=== PATIENT | female | born 1975 | race African-American/Black ===

== ENCOUNTER 2018-04-03 | Inpatient (IN) | payer OTHER ==
--- NOTE | ~2018-04-03 | EKG ---
[place], [place] ELECTROCARDIOGRAM REPORT NAME: KIRSTIN CROWELL UNIT #: [id number] ROOM: [place] [address] DOCTOR: ROSA DRAFT REPORT BIRTHDATE: [birth year] [facility] Test Date: 2018-04-03 Test Time: 15:42:25 Pat Name: KIRSTIN CROWELL Department: Room: [place] [address] Gender: F Nut Sifter: NICOLAS : 1975 Requested By: KEISHA MCCAIN Order Number: [id number] Reading MD: Hallie Amin MD Measurements Intervals [place] Rate: 84 P: 43 ND: 130 QRS: -8 QRSD: 89 T: 15 QT: 379 QTc: 449 Interpretive Statements Sinus rhythm Baseline wander in lead(s) V2 Electronically Signed On 04-04-2018 10:48:58 PST by Hallie Amin MD CM:EKGRPT:ELECTROCARDIOGRAM REPORT [id number] KEISHA LLAMAS DRAFT REPORT KEISHA MCCAIN DO
--- NOTE | ~2018-04-03 | CON ---
[place], [place] REPORT OF CONSULTATION NAME: KIRSTIN CROWELL UNIT #: [id number] ROOM: [place] [address] DOCTOR: CAMILLE COLE CNP BIRTHDATE: [birth year] DOS: 04/06/2018 PSYCHIATRIC CONSULTATION CHIEF COMPLAINT: "I thought Jinns are talking about me. HISTORY OF PRESENT ILLNESS: This is a 42-year-old black female who presented with tremors, visual hallucinations and diaphoresis secondary to withdrawal from benzodiazepines and opiates. The patient also reports history of alcohol dependence. She reported that her last drink was 03/30/2018. She last used heroin IV on 03/30/2018 as well as oxycodone on 03/30/2018. She also reported snorting Xanax on 03/30/2018. She reports being at [facility] for treatment of her substance use disorders; however, today she reported left flank pain and shortness of breath. She was subsequently taken from [facility] to the hospital where she was found to have abnormal labs. The patient was then transported to [facility] for management of her substance withdrawal. While on the ICU unit, the patient told staff that she was going to commit suicide by hanging herself with the IV tubing. She has been experiencing some paranoia and believes that everyone is talking about her. Staff reports that she is no longer experiencing withdrawal symptoms. However, she continues to yell out inappropriately. She continues to make suicidal comments. MENTAL STATUS: She is alert and oriented to person, place and time. There is no overt dinora or hypomania noted. She was pleasant and cooperative with me. Positive paranoia noted. No delusions noted. No auditory hallucinations noted; however, the patient is reporting visual hallucinations. The patient becomes tearful at times. She reports that she is anxious and that she needs medication to help her sleep. The patient's insight and judgment are poor. Her thought process is circumstantial. Her thought content, paranoid. DIAGNOSES: Schizophrenia, bipolar, major depressive disorder and suicidal ideation. Substance use disorder. PLAN: After meeting with the patient, plan will be to transport her to generations dual diagnosis unit in [place], [place] where they will be able to treat her addiction as well as her behavioral health issues. We will consult Oksana Romero to set up the transfer once the patient is considered medically stable. Should you require any further intervention, please feel free to reconsult me at any time. [place], [place] REPORT OF CONSULTATION NAME: KIRSTIN CROWELL UNIT #: [id number] ROOM: [place] [address] DOCTOR: CAMILLE COLE CNP BIRTHDATE: [birth year] Camille Cole CNP CM:CONSTR:REPORT OF CONSULTATION 1224 04/06/18 1846 interface
[2018-04-03 14:23] VITALS: BP 136/94
[2018-04-03 14:55] LABS: BILIRUBIN NEGATIVE (NEGATIVE); BLOOD NEGATIVE (NEGATIVE); CLARITY SL CLOUDY (CLEAR); COLOR YELLOW (YELLOW); GLUCOSE NEGATIVE (NEGATIVE); KETONE NEGATIVE (NEGATIVE); LEUKO ESTERASE 3+ (NEGATIVE); NITRITE NEGATIVE (NEGATIVE); PH 6.5 (5.0-9.0); UROBILINOGEN 0.2 E.U./dl (0.2-1.0)
[2018-04-03 15:04] LABS: URINE AMPHETAMINES < 1000 (1000ng/ml); URINE BARBITURATES > 200 (200ng/ml); URINE BENZODIAZEPINES > 200 (200ng/ml); URINE CANNABINOIDS (THC) < 50 (50ng/ml); URINE COCAINE < 300 (300ng/ml); URINE METHADONE < 300 (300ng/ml); URINE OPIATES < 300 (300ng/ml)
[2018-04-03 15:05] LABS: BACTERIA 2+; EPITHELIAL CELLS TNTC; WBC TNTC wbc/hpf (0-5)
[2018-04-03 15:14] LABS: URINE PHENCYCLIDINE < 25 (25ng/ml)
[2018-04-03 16:20] LABS: BASO % 0.4 % (0.0-1.0); EOS # 0.2 10*3/uL (0.0-0.4); EOS % 3.7 % (1.0-4.0); HEMATOCRIT 29.3 % (37.0-47.0); HEMOGLOBIN 8.9 g/dl (12.0-16.0); LYMPH # 1.8 10*3/uL (1.3-4.4); LYMPH % 33.6 % (27.0-41.0); MEAN CELL VOLUME 97.3 fl (81.0-99.0); MEAN CORPUSCULAR HGB 29.6 pg (27.0-31.0); MEAN CORPUSCULAR HGB CONC 30.4 g/dl (33.0-37.0); MEAN PLATELET VOLUME 9.6 fl (9.6-12.3); MONO # 0.5 10*3/uL (0.1-1.0); MONO % 8.9 % (3.0-9.0); NEUT # 2.9 10*3/uL (2.3-7.9); PLATELET COUNT AUTOMATED 237 10*3/uL (130-400); RED BLOOD COUNT 3.01 10*6/uL (4.10-5.10); RED CELL DISTRI WIDTH 15.3 % (0-14.5); WHITE BLOOD COUNT 5.4 10*3/uL (4.8-10.8)
[2018-04-03 16:28] LABS: ACT PARTIAL THROMBO TIME 23.4 SECONDS (20.8-31.5)
[2018-04-03 16:38] LABS: ALBUMIN 3.1 gm/dl (3.1-4.5); ALKALINE PHOSPHATASE 98 U/L (45-117); BUN 62 mg/dl (7-24); CHLORIDE 110 mmol/L (98-107); CREATININE 2.04 mg/dL (0.55-1.02); LIPASE 206 U/L (73-393); POTASSIUM 4.7 mmol/L (3.5-5.1); SGOT/AST 24 IU/L (3-35); SGPT/ALT 30 U/L (12-78); SODIUM 143 mmol/L (136-145); TOTAL PROTEIN 7.8 gm/dL (6.4-8.2)
[2018-04-03 16:40] LABS: ETHYL ALCOHOL < 3.0 mg/dl (<3); TROPONIN I < 0.015 ng/ml (<0.045)
--- NOTE | 2018-04-03 16:50 | NUR ---
UNABLE TO OBTAIN IV ACCESS DR MCCAIN NOTIFIED FOR LINE PLACEMETN
[2018-04-03 18:20] VITALS: BP 139/89
--- NOTE | 2018-04-03 18:20 | NUR ---
42 year old FEMALE admitted to room # 421 for stabilization. Reports an addiction to BENZODIAZEPINES,ALCOHOL, AND OPIATES last used 96 hours prior to admission. Compliant with admission procedure. Patient denies any anxiety, but is unable to sit still, taps toes to floor continuously, looks about room, unable to focus eyes on nurse during interview. See assessment forms for additional information about patient status.
[2018-04-03] MEDS ORDERED: PAXIL20 M1 PO (19:00)
--- NOTE | 2018-04-03 19:58 | NUR ---
MEDICATED WITH PRN ROBAXIN AND REQUIP FOR MUSCLE ACHES AND PAINS. PATIENT VERY DROWSY. FALLS ASLEEP IN THE MIDDLE OF SPEAKING AND DRINKING TO SWALLOW PILLS. DENIES TAKING ANYTHING NOT GIVEN TO HER BY AN RN. BED IN LOWEST POSITION, CALL LIGHT IN REACH
[2018-04-03 20:00] VITALS: BP 138/86
--- NOTE | 2018-04-03 20:08 | NUR ---
ATTEMPTED TO CALL RESIDENT REGARDING PATIENT. NO ANSWER
--- NOTE | 2018-04-03 20:11 | NUR ---
DR COLLAZO NOTIFIED OF PATIENT FALLING ASLEEP WHILE TALKING. STATES HE CANNOT SEE HER RIGHT NOW BUT TO TRANSFER TO THE ICU. PATIENT'S SPEECH GARBLED AT THIS TIME. CONTINUES TO DENY TAKING ANYTHING NOT GIVEN TO HER BY THIS RN.
[2018-04-03 20:20] VITALS: BP 119/79
--- NOTE | 2018-04-03 20:28 | NUR ---
2020 RECEIVED IN ICU #10 VIA BED WITH BELONGINGS. ALERT. SPEECH SL SLURRED. ORIENTED TO SURROUNDINGS AND CALL LIGHT. [address] COLLAZO HERE TO SEE PT. PT STATES THAT SHE IS SEEING "DEVILS"ON HER PHONE. IV FLUIDS INCREASED TO 100CC/HR ORDERED. WILL CONT TO MONITOR.
--- NOTE | 2018-04-03 20:29 | NUR ---
PATIENT TRANSFERRED TO THE ICU. REPORT GIVEN TO TEAGAN OBRIEN. DR COLLAZO AT BEDSIDE.
--- NOTE | 2018-04-03 21:05 | NUR ---
PT RESTING IN BED EATING ICE CREAM AND CAKE. KEEPS DRIFTING OFF TO SLEEP.
--- NOTE | 2018-04-03 22:18 | NUR ---
2210 AWAKE. C/O ANXIETY. VISTARIL GIVEN FOR THIS. REQUESTING SOMETHING FOR PAIN. INFORMED THAT IS IS TOO EARLY. RESTING IN BED WATCHING TV. WILL MONITOR.
[2018-04-04] VITALS: BP 125/82
--- NOTE | 2018-04-04 00:43 | NUR ---
0000 ROUTINE LIBRIUM GIVEN ORDERED. 0040 EARLIER MEDS EFFECTIVE. RESTING IN BED WITH EYES CLOSED. APPEARS TO BE SLEEPING.
--- NOTE | 2018-04-04 02:23 | NUR ---
0200 ROUTINE SUBUTEX GIVEN. NO DISTRESS NOTED.
[2018-04-04 04:00] VITALS: BP 116/85
[2018-04-04 05:13] LABS: BASO % 0.5 % (0.0-1.0); EOS # 0.2 10*3/uL (0.0-0.4); EOS % 5.5 % (1.0-4.0); HEMATOCRIT 26.2 % (37.0-47.0); HEMOGLOBIN 8.1 g/dl (12.0-16.0); LYMPH # 1.9 10*3/uL (1.3-4.4); LYMPH % 46.2 % (27.0-41.0); MEAN CELL VOLUME 98.1 fl (81.0-99.0); MEAN CORPUSCULAR HGB 30.3 pg (27.0-31.0); MEAN CORPUSCULAR HGB CONC 30.9 g/dl (33.0-37.0); MONO # 0.6 10*3/uL (0.1-1.0); MONO % 13.6 % (3.0-9.0); NEUT # 1.4 10*3/uL (2.3-7.9); PLATELET COUNT AUTOMATED 211 10*3/uL (130-400); RED BLOOD COUNT 2.67 10*6/uL (4.10-5.10); RED CELL DISTRI WIDTH 15.5 % (0-14.5)
[2018-04-04 05:39] LABS: ALBUMIN 2.8 gm/dl (3.1-4.5); CREATININE 1.95 mg/dL (0.55-1.02); POTASSIUM 4.7 mmol/L (3.5-5.1); TOTAL PROTEIN 7.1 gm/dL (6.4-8.2)
--- NOTE | 2018-04-04 06:12 | NUR ---
0530 AWAKENED FOR ROUTINE LIBRIUM, REMAINS ALERT WHEN AWAKENED. IV FLUIDS CONT. RIJ MLC INTACT. NO DISTRESS NOTED. CONDITION GUARDED.
[2018-04-04 08:00] VITALS: BP 130/85
--- NOTE | 2018-04-04 08:26 | NUR ---
PR STAFF SPOKE WITH [facility] IN [place] AND SPOKE WITH THE RECREATION ADVISER, PJ WHO STATED THAT THE PATIENT WILL BE ABLE TO GO BACK AND FINISH HER STAY WITH THEM AFTER SHE FINISHED HER TAPER HERE. [facility] [phone]. FUNMI CLARK B.A. COLLECTIONS CLERK
--- NOTE | 2018-04-04 10:45 | NUR ---
MEDICATED WITH ROBAXIN ORDERED FOR COMPLAINTS OF FATIGUE AND MUSCLE PAIN
[2018-04-04 12:00] VITALS: BP 128/76
--- NOTE | 2018-04-04 14:49 | NUR ---
MEDICATED WITH MAALOX, BENTYL, AND VISTARIL FOR COMPLAINTS OF STOMACH UPSET, RIGHT FLANK PAIN, AND ANXIETY.
--- NOTE | 2018-04-04 15:23 | NUR ---
NV STAFF SPOKE WITH [facility] AND THEY ARE STATED THAT SHE DOES NOT MEET THEIR CRITIERIA. NV STAFF SENT PATIENT'S ASSESSMENT TO [facility]. THEY MAY HAVE A POSSIBLE OPENING FOR SATURDAY THE . NV STAFF IS WAITING TO SEE IF PATIENT IS APPROVED OR NOT. NV STAFF WILL FOLLOW UP WITH PATIENT. NV STAFF ALSO CALLED NUMEROUS FACILITIES IN THE AREA, HOWEVER NO BEDS ARE AVAILABLE AT THIS TIME. FUNMI CLARK B.A. HEAD ESTHETICIAN
[2018-04-04 16:00] VITALS: BP 123/68
--- NOTE | 2018-04-04 16:05 | NUR ---
NV STAFF LEFT MESSAGE WITH [facility] IN [place] TO CHECK ON PATIENT'S STATUS. NV STAFF WILL SET UP TRANSPORTATION THROUGH PATIENT'S INSURANCE UPON DISCHARGE ON SATURDAY. FUNMI CLARK B.A. ASSOCIATE RESEARCH SCIENTIST
--- NOTE | 2018-04-04 18:10 | NUR ---
MEDICATED WITH ATIVAN 2MG IV FOR COMPLAINTS OF ANXIETY, RESTLESSNESS. REFUSES TO TAKE ZOFRAN BECAUSE SHE STATES " ZOFRAN MAKES MY TONGUE ITCHY."
--- NOTE | 2018-04-04 18:54 | NUR ---
TALKING TO STAFF, HEARING STAFF TALKING. INTERJECTING IN STAFF'S CONVERSATION. UNHOOKING HEART MONITOR. ATTEMPTING TO GET OUT OF BED. DR. MCCAIN NOTIFIED.
[2018-04-04 20:00] VITALS: BP 143/98
--- NOTE | 2018-04-04 20:29 | NUR ---
1929 DR. COLLAZO HERE TO SE PT. UPDATED ON PT CONDITION. 1999 UP TO BSC TO VOID. MORE ALERT AND COOPERATIVE AT PRESENT. STILL CONFUSED AT TIMES, BUT RE-ORIENTS. 2029 RESTING IN BED WITH EYES CLOSED. APPEARS TO BE SLEEPING. PULSE OX 97% ON RA. IV FLUIDS CONT. RIJ MLC INTACT. NO DISTRESS NOTED AT PRESENT. MONITOR NSR IN THE '
--- NOTE | 2018-04-04 21:21 | NUR ---
ROUTINE LIBRIUM GIVEN PER ORDER. TRAZADONE GIVEN FOR SLEEP. RESTING IN BED EATING ICE CREAM. WILL MONITOR.
--- NOTE | 2018-04-04 22:14 | NUR ---
EARLIER MEDS EFFECTIVE. RESTING IN BED WITH EYES CLOSED. APPEARS TO BE SLEEPING.
[2018-04-05] VITALS (7 sets, daily range): BP systolic 114–145; BP diastolic 74–88
--- NOTE | 2018-04-05 00:23 | NUR ---
REMAINS SLEEPING WITHOUT DISTRESS.
--- NOTE | 2018-04-05 02:41 | NUR ---
0220 AWAKE. HAD A BOXED LUNCH PER REQUEST. REQUESTING IV ATIVAN. INFORMED THAT SHE IS NOT TO RECEIVE ANY MORE OF THIS PER THE PHYSICIAN. GIVEN VISTARIL FOR ANXIETY AND ROBAXIN FOR PAIN. REQUESTING TO SPEAK WITH HER DR. DR. COLLAZO CALLED. 0225 HERE TO TALK WITH PT. 0230 MEDICATED WITH REQUIP FOR RESTLESS LEGS. WILL MONITOR. 0235 NOW REQUESTING SOMETHING FOR NAUSEA. BUT STATES SHE IS ALLERGIC TO ZOFRAN. DR. COLLAZO AWARE. 0245 GIVEN PORTABLE PHONE PER REQUEST TO CALL HER MOTHER.
--- NOTE | 2018-04-05 03:05 | NUR ---
0305 PHENERGAN 12.5MG PO GIVEN PER REQUSET FOR NAUSEA. NO EMESIS NOTED. WILL CONT TO MONITOR.
--- NOTE | 2018-04-05 04:14 | NUR ---
0400 REQUESTING IV ATIVNA AGAIN. STATES " HE TOLD ME TO LET HIM KNOW IF THE MEDICINE DID NOT WORK IN A HALF HOUR AND IT HASN'T". DR. COLLAZO ON FLOOR AND AWARE. NO NEW ORDERS RECEIVED. PT ACTUALLY APPEARS DROWSY BUT STATES THAT I DO NOT KNOW HOW SHE FEELS AND SHE IS "WITHDRAWING". WILL CONT TO MONITOR.
[2018-04-05 05:15] LABS: ALBUMIN 2.8 gm/dl (3.1-4.5); CREATININE 1.9 mg/dL (0.55-1.02); PHOSPHOROUS 3.5 mg/dL (2.5-4.9); POTASSIUM 4.7 mmol/L (3.5-5.1); TOTAL PROTEIN 7.1 gm/dL (6.4-8.2)
[2018-04-05 06:01] LABS: BASO % 0.4 % (0.0-1.0); EOS # 0.2 10*3/uL (0.0-0.4); EOS % 4.9 % (1.0-4.0); HEMATOCRIT 27.3 % (37.0-47.0); HEMOGLOBIN 8.1 g/dl (12.0-16.0); LYMPH # 1.5 10*3/uL (1.3-4.4); LYMPH % 32.8 % (27.0-41.0); MEAN CELL VOLUME 99.6 fl (81.0-99.0); MEAN CORPUSCULAR HGB 29.6 pg (27.0-31.0); MEAN CORPUSCULAR HGB CONC 29.7 g/dl (33.0-37.0); MEAN PLATELET VOLUME 9.7 fl (9.6-12.3); MONO # 0.7 10*3/uL (0.1-1.0); MONO % 14.7 % (3.0-9.0); NEUT # 2.2 10*3/uL (2.3-7.9); PLATELET COUNT AUTOMATED 207 10*3/uL (130-400); RED BLOOD COUNT 2.74 10*6/uL (4.10-5.10); RED CELL DISTRI WIDTH 15.3 % (0-14.5); WHITE BLOOD COUNT 4.7 10*3/uL (4.8-10.8)
--- NOTE | 2018-04-05 06:04 | NUR ---
0500 ROUTINE LIBRIUM GIVEN PER ORDER. STATES " I CAN'T SWALLOW PILLS, I NEVER CAN. I NEED LIQUID". TOLD HER SHE HAS BEEN TAKING PILLS WITHOUT DIFFICULTY FOR ME FOR 2 DAYS. DENIES THIS. 0600 RESTING IN BED WITH EYES CLOSED. APPEARS TO BE SLEEPING. IV FLUIDS CONT. NO DISTRESS NOTED. CONDITION GUARDED.
--- NOTE | 2018-04-05 08:07 | NUR ---
0730 DR. TAPIA IN TO SEE PT. ORDERS RECEIVED. 0800 PT TRANSFERRED TO [facility] AM[facility]UL[facility] WITH PA AND RN. ORIENTED TO NEW ROOM AND CALL LIGHT. GIVEN BREAKFAST. RIJ MLC INTACT. IV FLUIDS CONT. REPORT GIVEN. RESIDENTIAL SUBCONTRACTOR APPLIED. CONDITION GUARDED.
--- NOTE | 2018-04-05 09:00 | NUR ---
DIANA INFORMS THIS RN THAT PT HAD A FALL TRANSFERRING FROM BSC TO BED. NO OPEN AREAS OR BRUISING NOTED UPON ASSESSMENT. DR HENSLEY AND NURSING INDUSTRIAL ORDER CLERK NOTIFIED. NO NEW ORDERS NOTED. WILL CONTINUE TO MONITOR
--- NOTE | 2018-04-05 17:30 | NUR ---
PT STATES THAT SHE IS FEELING SUCIDAL AND WANTS TO HURT SOME ONE. SHE STATES THAT SHE WOULD TRY TO HANG HERSELF. DR FRYE AND NURSING PARTICLE BOARD SUPERVISOR NOTIFIED. NO NEW ORDERS NOTED AT THIS TIME.
--- NOTE | 2018-04-05 18:18 | NUR ---
RECEIVED FROM AFTER VOICING SUICIDAL THOUGHTS THAT SHE WAS GOING TO HANG HERSLEF PER REPORT. [facility] NOTIFIED OF CONSULT, PJ TIWARI AWARE OF CONSULT - WE ARE TO CALL HER WHEN DECLARED MEDICALLY STABLE
--- NOTE | 2018-04-05 18:39 | NUR ---
ROBAXIN & REQUIP GIVEN FOR RESTLESSNESS & ANXIETY - PATIENT THINKS HER SISTER TOOK HER MONEY THAT WAS FOR GETTING BRACELETS WITH HER HUSBANDS ASHES IN THEM FOR HER & HER KIDS. PER THE PATIENT " I WANT TO KILL HER". THE PATIENT SAID SHE TRUSTED HER SISTER AND THAT HER SISTER SAYS SHE CAN'T FIND IT BUT DID NOT USE IT HERSELF. PATIENT IS VERY DEPRESSED ABOUT LOOSING HER AND MISSING HER KIDS BIRTHDAYS. DRESSING TO [facility] CHANGED AFTER LOOSE, NOW SECURE & PATENT WITH IVF INFUSING.
--- NOTE | 2018-04-05 20:25 | NUR ---
NOTIFIED DR. HERNANDES OF PATIENT HAVING A BLOODY EMESIS.
--- NOTE | 2018-04-05 20:30 | NUR ---
NOTIFIED DR. HERNANDES PATIENT WOULD LIKE TO SEE HIM AND TALK TO HIM ABOUT PAIN SHE IS HAVING. HE WILL BE UP TO SEE PATIENT WHEN FINISHED IN ER.
--- NOTE | 2018-04-05 21:00 | NUR ---
DR. HERNANDES IN TO SEE PATIENT, SHE STATED SHE IS HAVING PAIN IN HER VAGINA AND BUTTOCKS AREA FROM FALL IN THE AM. I ASSISTED DR. HERNANDES TO EXAMINE THESE AREAS. NO VISIBLE MARKINGS FOUND. NEW ORDERS RECEIVED FOR XRAY WHEN TIME ALLOW TO TAKE PATIENT DOWN, AND PATIENT STATED "HE DIDNT SPEND ENOUGH TIME WITH ME, HE DOESNT CARE". PATIENT UPSET AND STATED SHE WAS GOING TO [facility] AND HAVE THE DOCTORS BADGE.
--- NOTE | 2018-04-05 22:06 | NUR ---
PATIENT UP ON BEDSIDE COMMODE, PATIENT STATED SHE WAS GOING TO BE AWHILE BUT SHE WAS OK WHILE I GOT MY ADMISSION FROM ER, WHICH WAS MY THIRD ICU PATIENT. ANOTHER FELLOW NURSE CHECK ON PATIENT ALSO WHILE ON THE BEDSIDE, AND SHE WAS OK. I CONTINUE WITH MY ADMISSION, THEN HEARD A THUD AND PATIENT STATED SHE FELL OFF BEDSIDE AND HIT HER MOUTH, IN WHICH A SMALL AMOUNT OF BLOOD WAS ON THE FLOOR. PATIENT STATED "SEE, I TOLD YOU I NEEDED TO SEE THE DOCTOR." DR. HERNANDES WAS NOTIFIED AND SO WAS THE DRILL OPERATOR. PATIENT PLACED BACK IN BED WITH HELP FROM FLOOR, ASSESSED, NO ABRASIONS, NO CUTS FOUND. AWAITING ORDERS.
[2018-04-06] VITALS (7 sets, daily range): BP systolic 118–158; BP diastolic 60–96
--- NOTE | 2018-04-06 03:10 | NUR ---
PATIENT AWOKE, RESTLESS AND ANXIOUS. PATIENT HAD SOAKED THE BED WITH URINE. PATIENT ASSISTED TO BEDSIDE, PATIENT CLEANED UP AND BED CLEANED. RETURNED PATIENT TO BED, ADMINISTERED ATIVAN, BED ALARM PUT ON. WILL CONTINUE TO MONITOR.
[2018-04-06 05:59] LABS: BASO % 0.5 % (0.0-1.0); EOS # 0.3 10*3/uL (0.0-0.4); EOS % 6.7 % (1.0-4.0); HEMATOCRIT 27.2 % (37.0-47.0); HEMOGLOBIN 8.2 g/dl (12.0-16.0); LYMPH # 1.1 10*3/uL (1.3-4.4); LYMPH % 29.3 % (27.0-41.0); MEAN CELL VOLUME 98.9 fl (81.0-99.0); MEAN CORPUSCULAR HGB 29.8 pg (27.0-31.0); MEAN CORPUSCULAR HGB CONC 30.1 g/dl (33.0-37.0); MEAN PLATELET VOLUME 9.7 fl (9.6-12.3); MONO # 0.5 10*3/uL (0.1-1.0); MONO % 13.9 % (3.0-9.0); NEUT # 1.9 10*3/uL (2.3-7.9); NEUT % 49.3 % (47.0-73.0); PLATELET COUNT AUTOMATED 201 10*3/uL (130-400); RED BLOOD COUNT 2.75 10*6/uL (4.10-5.10); WHITE BLOOD COUNT 3.8 10*3/uL (4.8-10.8)
[2018-04-06 06:13] LABS: ALBUMIN 2.7 gm/dl (3.1-4.5); CREATININE 1.62 mg/dL (0.55-1.02); PHOSPHOROUS 3.5 mg/dL (2.5-4.9); POTASSIUM 4.5 mmol/L (3.5-5.1); TOTAL PROTEIN 6.9 gm/dL (6.4-8.2)
--- NOTE | 2018-04-06 08:00 | NUR ---
DR TAPIA ROUNDED - PATIENT WOULD NOT TALK TO HIM. HE ASKED WHAT SHE WOULD DO IF SHE WENT HOME AND SHE WOULD NOT ANSWER - HE TOLD HER THAT SHE MAY BE DISCHARGED - PATIENT DID NOT RESPOND.
--- NOTE | 2018-04-06 08:15 | NUR ---
PATIENT WANTING TO TALK TO A DOCTOR - SHE SAID NO ONE LOOKED AT HER BUTT OR VAGINA AND WHEN TOLD THAT THE NURSE DID YESTERDAY AFTER THE FALL, THEN DR HERNANDES EXAMINED HER LAST NOGHT SHE SAID THAT WASN'T GOOD ENOUGH. REQUESTING IV ATIVAN, TOLD IT ITS NOT TIME YET
--- NOTE | 2018-04-06 08:30 | NUR ---
PATIENT ASKED IF THE DOCTOR IS GOING TO ALLOW HER TO HAVE THE ATIVAN SHOT AND SHE WAS TOLD THAT HE CHANGED IT TO PILL FORM SHE CANNOT GO TO ANY REHAB ON IV AND SHE GOT UPSET.
--- NOTE | 2018-04-06 08:31 | NUR ---
PATIENT WANTING ANY MAN THAT WALKS IN TO COME SEE HER SAYING THAT THE DOCTORS WONT TALK TO HER. PATIENT NOW SAYING SHE TOOK A TISSUE AND WIPED HER BUTT, WHILE IN THE BED, SAYING THAT SHE WAS BLEEDING - SHE SHOWED THE TISSUE WHICH IS ONE SHE HAD BLOWN HER NOSE EARLIER AND SHE SAID IT HAD BLOOD ON IT - NURSE SHOWED IT TO HER AND SHE SAID I SWITCHED IT. PATIENT THEN REQUESTED THE DOCTOR TO COME BECAUSE HER TAIL BONE HURT. RN TOLD HER THAT THE DOCTOR TOLD HER IT WOULD TAKE A WHILE TO STOP AND THAT THERE IS NOTHING THAT CAN BE DONE. SHE SAID THERE IS STUFF FOR PAIN SHE CAN BE GIVEN. NURSE TOLD HER WE COULD GET HER TYLENOL TO WHICH SHE RESPONDED THAT SHE CAN'T TAKE TYLENOL. THE RN THEN SAID THE DOCTOR WILL NOT ORDER A NARCOTIC WHICH THE PATIENT RESPONDED THATS THE WORD I WAS LOOKING FOR. THATS WHAT THEY GIVE FOR HURT TAILBONES. RN EXPLAINED THAT SHE WAS HERE FOR TO GET OFF THE DRUGS & ALCOHOL AND SHE SAID BUT THEY CAN GIVE IT TO ME. RN TOLD HER THEY WILL NOT ORDER ANYTHING LIKE THAT. SHE THEN STARTED WITH EVERY HOSPITAL HAS A PSYCH ROSS ON EVERY FLOOR AND WHEN I TOLD HER WE ONLY HAVE ONE FOR GERIATRIC SHE ASKED HOW OLD SHE HAD TO BE AND I TOLD HER OVER 55 SHE SAID I WAS BORN IN [birth year] SO CAN I GO. RN TOLD HER SHE WAS NOT BORN IN 1956 AND SHE GOT MAD AND WANTS TO TALK TO THE DOCTORS MOR ABOUT THE PAIN PILL
--- NOTE | 2018-04-06 14:00 | NUR ---
PATIENT HAD DR ACE BACK UP TO UNIT TO LOOK AT QUARTER SIZED BRIGHT BLOOD THAT SHE SPIT UP AFTER DRY HEAVE AFTER EATING A LARGE MEAL. VSS. PATIENT AARGUED AT ONE POINT WITH THE DOCTOR THAT SHE HAD TO GO TO THE EMERGENCY ROOM AND SHE WOULD NOT ACCEPT THAT SHE COULD BE TREATED HERE. PATIENT REMAINED ARGUMENTATIVE DESPITE ANY EXPLANATIONS BY THE DOCTOR OR NURSE. RIJ-MLC REMAINS INTACT.
[2018-04-06 14:45] LABS: BASO % 0.4 % (0.0-1.0); EOS # 0.3 10*3/uL (0.0-0.4); EOS % 5.9 % (1.0-4.0); LYMPH # 1.6 10*3/uL (1.3-4.4); LYMPH % 32.6 % (27.0-41.0); MEAN CELL VOLUME 98.3 fl (81.0-99.0); MEAN CORPUSCULAR HGB 30.5 pg (27.0-31.0); MEAN PLATELET VOLUME 9.2 fl (9.6-12.3); MONO # 0.6 10*3/uL (0.1-1.0); NEUT # 2.3 10*3/uL (2.3-7.9); NEUT % 48.7 % (47.0-73.0); PLATELET COUNT AUTOMATED 224 10*3/uL (130-400); RED BLOOD COUNT 2.95 10*6/uL (4.10-5.10); RED CELL DISTRI WIDTH 14.9 % (0-14.5); WHITE BLOOD COUNT 4.8 10*3/uL (4.8-10.8)
--- NOTE | 2018-04-06 14:45 | NUR ---
ATIVAN GIVEN WITH PO PROTONIX FOR ANXIETY & STOMACH ISSUES
--- NOTE | 2018-04-06 16:15 | NUR ---
PATIENT INJECTING INTO EVERY CONVERSATION BUT IS NOT MAKING ANY SENSE. FREQUENT ATTEMPTS TO RE-ORIENT TO CURRENT SITUATION UNSUCCESSFUL.
--- NOTE | 2018-04-06 17:04 | NUR ---
PATIENT INCONTINENT OF LARGE AMOUNT OF URINE - WASHED UP AND FULL BED CHANGE DONE. QUIET & HAPPY EATING ICE CREAM - DINNER ORDERED. NO FURTHER NAUSEA OR BLOOD.
--- NOTE | 2018-04-06 17:51 | NUR ---
PATIENT WAS SITTING ON BSC WITH STAFF DIRECTLY BEHIND HER - SHE ONCE AGAIN BENT OVER THE SIDE AND WAS REACHING FOR THE TRASH WHICH SHE HAS DONE MULTIPLE TIMES AND STAFF HAS TOLD HER NOT TO DO. STAFF WAS ONCE AGAIN TELLING HER NOT TO BEND OVER SHE LEANED FURTHER AND FLIPPED THE POTTY CHAIR ONTO HERSELF. PER THE PATIENT SHE WAS SPITTING UP BLOOD WHICH THERE WAS BLOOD ON HER GOWN BUT THERE WAS ALSO BLOOD COMING FROM HER LIP & ? TONGUE. PATIENT NEVER LOST CONSCIOUSNESS AND CONTINUED TO ARGUE WITH STAFF TO HOW TO GET HER UP SHE WAS UNABLE TO GET UP OFF THE FLOOR EVEN WITH ASSISTANCE. NO VISIBLE WOUNDS OR FARMER TO FOREHEAD, FACE, ARMS, CHEST, KNEES, LEGS OR BACK & BUTT.
--- NOTE | 2018-04-06 20:00 | NUR ---
PATIENT ASSEMSNT COMPLETE PATIENT HAS NO VISBLE INJURIES OR WOUNDS AT THIS TIME SEE ASSEMENT DOCUMENTATION FOR FURTHER DOCUMENTATION.
--- NOTE | 2018-04-06 23:29 | NUR ---
PATIENT BECAME VERY AGITATED STATING SHE WAS HAVING BAD ANXIETY AND THAT THE LITTLE PILLS WERE NOT WORKING AND SHE WAS GOING TO LEAVE WHEN PATIENT WAS INSTRUCTED TO GET BACK IN THE BED SHE SAID BECAME ANGRY SAYING THAT IF ANYONE TOUCHED HER SHE WAS GOING TO HIT SOMEONE. NESTOR WAS CALLED AND DOCTOR CECILIO GOFF ORDER GIVEN AND GIVEN TO THE PATIENT.
[2018-04-07] VITALS: BP 130/72
--- NOTE | 2018-04-07 00:47 | NUR ---
PATIENT CALM AT TIME LYING IN BED WITH EYES CLOSED NO COMPAINTS AT THIS TIME.
[2018-04-07 04:00] VITALS: BP 132/92
--- NOTE | 2018-04-07 04:05 | NUR ---
PATIENT NHAS BEEN ASLEEP SINCE IV ATIVAN WAS GIVEN. PATIENT IS NOT COMBATIVE OF THIS POINT. WILL MONITOR
[2018-04-07 05:53] LABS: BASO % 0.4 % (0.0-1.0); EOS # 0.3 10*3/uL (0.0-0.4); EOS % 5.8 % (1.0-4.0); HEMATOCRIT 28.6 % (37.0-47.0); HEMOGLOBIN 8.9 g/dl (12.0-16.0); LYMPH # 1.5 10*3/uL (1.3-4.4); LYMPH % 30.2 % (27.0-41.0); MEAN CELL VOLUME 97.6 fl (81.0-99.0); MEAN CORPUSCULAR HGB 30.4 pg (27.0-31.0); MEAN CORPUSCULAR HGB CONC 31.1 g/dl (33.0-37.0); MEAN PLATELET VOLUME 9.2 fl (9.6-12.3); MONO # 0.6 10*3/uL (0.1-1.0); MONO % 11.8 % (3.0-9.0); NEUT # 2.5 10*3/uL (2.3-7.9); NEUT % 51.6 % (47.0-73.0); PLATELET COUNT AUTOMATED 236 10*3/uL (130-400); RED BLOOD COUNT 2.93 10*6/uL (4.10-5.10); WHITE BLOOD COUNT 4.8 10*3/uL (4.8-10.8)
[2018-04-07 06:09] LABS: ALBUMIN 2.9 gm/dl (3.1-4.5); CREATININE 1.75 mg/dL (0.55-1.02); POTASSIUM 4.8 mmol/L (3.5-5.1)
[2018-04-07 06:12] LABS: TOTAL PROTEIN 7.2 gm/dL (6.4-8.2)
--- NOTE | 2018-04-07 07:25 | NUR ---
SITTER AT BEDSIDE. PATIENT TELLING SITTER THAT SOMEONE IS KNOCKING AT THE DOOR BUT DIDN'T BELIEVE WHEN TOLD THAT IT WAS ON THE TV SET. PATIENT IS PARANOID AND THINKING EVERYONE IS TALKING ABOUT HER. SHE ALSO IS LOOKING FOR ANY DOCTOR TO COME GIVE HER SOMETHING.
[2018-04-07 08:00] VITALS: BP 128/70
--- NOTE | 2018-04-07 09:10 | NUR ---
will search for an inpatient psychiatric placement since client is now medically stable.
[2018-04-07 12:00] VITALS: BP 132/82
--- NOTE | 2018-04-07 14:18 | NUR ---
BLANCAN EMMATARIL GIVEN. PATIENT REASSURED THAT STAFF IS NOT TALKING ABOUT HER EVERYTIME SHE HEARS SOMETHING - THAT WE ARE TALKING ABOUT MANY PATIENTS. REASSURED HER THAT SHE HAS BEEN TOLD EVEERYTHING AND SHE AGREED THAT SHE HAS PARANOID SKITZOPHRENIA. SHE JUST WANTS SOMETHING THROUGH THE IV THAT WILL MAKE HER SLEEP AND PAIN PILLS NOT TYLENOL (WHEN NURSE ASKED IF SHE MEANT NARCOTICS) PATIENT RESPONDED YES THATS THE WORD
--- NOTE | 2018-04-07 15:26 | NUR ---
PAPERS FAXED TO [facility] - CONFIRMATION PAPERS RECEIVEDF
[2018-04-07 16:00] VITALS: BP 122/72
--- NOTE | 2018-04-07 19:51 | NUR ---
PATIENT HAS LOW GRADE TEMP OF 99, TYLENOL GIVEN. WILL REASSESS. PATIENT ALSO ASKING FOR SOMETHING FOR PAIN, AND ANXIETY. ROBAXIN AND VISTARIL GIVEN. WILL MONTIOR.
[2018-04-07 20:01] VITALS: BP 160/92
--- NOTE | 2018-04-07 20:35 | NUR ---
PATIENT YELLING, STATED SHE IS LEAVING, DR VALDES ON FLOOR TO SEE PATIENT. NEW ORDER RECEIVED FOR ATIVAN 2MG IV. WAS GIVEN. WILL MONITOR.
[2018-04-07] MEDS ORDERED: NATURE'S BLEND100 M2 PO (20:36)
[2018-04-07] MEDS ORDERED: ROPINIROLE HYD0.5 MG PO (20:36)
[2018-04-07] MEDS ORDERED: AMOXICILLIN250 MG PO (20:36)
[2018-04-07] MEDS ORDERED: NATURE'S BLEND F1 MG PO (20:36)
--- NOTE | 2018-04-08 00:32 | NUR ---
PATIENT LEFT FLOOR FOR DISCHARGE VIA [facility].
--- NOTE | 2018-04-08 00:44 | NUR ---
REPORT GIVEN TO RN AT [facility].
== END 2018-04-08 00:32 | disposition home health service (06) | DRG 897 ==
PROVIDERS: Emergency Medicine; Internal Medicine; Internal Medicine Nephrology; ADMIT Internal Medicine
DX: F11.23 Opioid dependence with withdrawal (principal); N39.0 Urinary tract infection, site not specified; E44.0 Moderate protein-calorie malnutrition; E87.0 Hyperosmolality and hypernatremia; R45.851 Suicidal ideations; K62.5 Hemorrhage of anus and rectum; K92.0 Hematemesis; J98.11 Atelectasis; Z68.41 Body mass index [BMI] 40.0-44.9, adult; R25.1 Tremor, unspecified; N18.3 Chronic kidney disease, stage 3 (moderate); D64.9 Anemia, unspecified; E87.8 Other disorders of electrolyte and fluid balance, not elsewhere classified; F31.9 Bipolar disorder, unspecified; F20.9 Schizophrenia, unspecified; R79.82 Elevated C-reactive protein (CRP); R79.89 Other specified abnormal findings of blood chemistry; K59.00 Constipation, unspecified; R06.82 Tachypnea, not elsewhere classified; B95.2 Enterococcus as the cause of diseases classified elsewhere; D72.819 Decreased white blood cell count, unspecified; F13.232 Sedative, hypnotic or anxiolytic dependence with withdrawal with perceptual disturbance; F10.230 Alcohol dependence with withdrawal, uncomplicated; N20.0 Calculus of kidney; E66.01 Morbid (severe) obesity due to excess calories; Z72.0 Tobacco use; Z71.6 Tobacco abuse counseling; Z88.6 Allergy status to analgesic agent; Z88.8 Allergy status to other drugs, medicaments and biological substances; Z90.5 Acquired absence of kidney; Z83.3 Family history of diabetes mellitus